=== PATIENT | female | born 1995 | race Caucasian/White ===

== ENCOUNTER 2016-12-17 09:59 | Emergency (ER) | payer OTHER ==
--- NOTE | 2016-12-17 11:32 | REP ---
Clinical: Cough . Comparison: 09/26/2016 . Technique: PA and lateral. Findings: The mediastinum and cardiac silhouette are normal. The lung huang are clear and without acute consolidation, effusion, or pneumothorax. The skeletal structures are intact and normal. Impression: 1. No acute cardiopulmonary process. Signed by Fritz Tyler MD 12/17/2016 11:24 A
--- NOTE | 2016-12-17 12:05 | EDDOCDS ---
Nurse's Notes [facility] Name: Milagros Jamil Age: 21 yrs Sex: Female : 1995 Arrival Date: 12/17/2016 Time: 09:59 Bed TR8 Private MD: Eda Velazquez Diagnosis: Acute nasopharyngitis [common cold] Presentation: 12/17 10:04 Presenting complaint: Patient states: severe cough for 4-5 days. runny nose itchy srm watery eyes. Presenting complaint: Patient states: chest shoulserds and back hurt from coughing. Adult Sepsis Screening: The patient does not have new or worsening altered mentation. Patient's respiratory rate is less than 22. Systolic blood pressure is greater than 100. Patient has a qSOFA score of 0- Negative Sepsis Screen. Suicide/Homicide risk assessment- the patient denies having any suicidal and/or homicidal ideations and does not present with any other emotional, behavioral or mental health complaints. Status: Patient is not a human services case manager or dependent. Transition of care: patient was not received from another setting of care. 10:04 Acuity: SARAH Level 4 srm 10:04 Method Of Arrival: Walkin/Carried/Asstd srm Triage Assessment: 10:06 General: Appears in no apparent distress, Behavior is appropriate for age, cooperative. srm Pain: Pain currently is 9 out of 10 on a pain scale. HIV screening NA for this visit Offered previously. 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 gemfibrozil 600 mg Oral tab 1 tab 2 times per day 2. Lantus 100 unit/mL Sub-Q soln 25 unit twice a day 3. levothyroxine 50 mcg Oral tab 1 tab once daily 4. metformin 500 mg Oral Tb24 1 tab 2 times per day 5. Vitamin D-2 1.25 mg twice weekly - PMHx: Bipolar disorder; Diabetes - IDDM: controlled; Hypercholesterolemia; Hypothyroidism; - PSHx: Tonsillectomy; Cholecystectomy; pilonidal cyst removal; - Social history: Smoking status: Patient states former smoker of tobacco. No barriers to communication noted, The patient speaks fluent Kyrgyz, Speaks appropriately for age. - Family history: Not pertinent. - : The pt / caregiver states he / she is not on anticoagulants. Home medication list is obtained from the patient. - Exposure Risk Screening:: None identified. Screenin:01 Screening information is obtained from the patient. Fall risk: No risks identified. [facility] Assistance ADL's: requires no assistance with activities of daily living. Abuse/DV Screen: The patient / caregiver reports he/she is: not in a situation that causes fear, pain or injury. Nutritional screening: No deficits noted. Advance Directives: There is no active DNR order. home support is adequate. Assessment: 12:01 General: Appears in no apparent distress, comfortable, Behavior is cooperative, first [facility] contact with patient to review discharge instructions, patient states "No, I'm not in very much pain right now" and rates it 9/10. encouraged and answered questions, patient denies further needs and declines offer of additional assistance. Respiratory: Airway is patent Respiratory effort is even, unlabored, Respiratory pattern is regular, symmetrical. Derm: Skin is pink, warm & dry. Vital Signs: 10:01 BP 114 / 81; Pulse 122; Resp 18; Temp 96.3; Pulse Ox 91% ; Weight 109.77 kg; Height 5 m ft. 5 in. (165.10 cm); Pain 9/10; 12:01 BP 142 / 94; Pulse 100; Resp 16; Temp 98.2; Pulse Ox 98% ; Pain 9/10; [facility] 10:01 Body Mass Index 40.27 (109.77 kg, 165.10 cm) [facility] Vitals: 10:01 Log In Time: December 17, 2016 at 10:01. [facility] ED Course: 10:00 Patient visited by Tanna Rodrigues, Combination Machine Tender. [facility] 10:00 Eda Velazquez is Private Physician. jl 10:00 Patient moved to Waiting jlm 10:01 Patient moved to Pre RCE jlm 10:05 Triage Initiated srm 10:24 Thaddeus Johns PA is PHCP. btw 10:24 Shelby Velasco MD is Attending Physician. btw 10:24 Patient visited by Thaddeus Jhons PA. btw 10:24 Patient moved to Triage 2 srm 10:35 Patient moved to TR3 sew 10:44 [facility] Payment Agreement was scanned into [employer] and attached to record. lg 10:56 Patient visited by Cynthia Song. sew 11:26 Eda Velazquez is Referral Physician. btw 11:30 Patient moved to PR1 / 25 [facility] 11:58 Patient moved to TR8 [facility] 12:01 The patient / caregiver is instructed regarding the plan of care and ED course. [facility] 12:01 No IV's were initiated during this patient's visit. No procedures done that require [facility] assistance. Point of Care Testing: Urine : 10:56 hCG Reading: Negative; Control Reading: Positive; sew Ranges: Order Results: There are currently no results for this order. Outcome: 11:26 Discharge ordered by Provider. btw 12:01 Discharge Assessment: Patient awake, alert and oriented x 3. No cognitive and/or [facility] functional deficits noted. Patient verbalized understanding of disposition instructions. patient administered narcotics - no. The following High Risk Discharge criteria are identified: None. Discharged to home ambulatory, with significant other. Condition: good Condition: stable. Discharge instructions given to patient, Instructed on discharge instructions, follow up and referral plans. Demonstrated understanding of instructions, Pt was receptive of discharge instructions/ teaching. No special radiology studies were completed. Property :Personal belongings accompany Pt. 12:04 Patient left the ED. [facility] Signatures: Sanju Cassidy, RN RN [facility] Halima Vaz RN RN Jacob Allen, Thaddeus Velasquez lg, PA PA [facility] Snehal Calix,RN RN [facility] Cynthia Song Jessie, Combination Machine Tender Unit [facility] MTDD
--- NOTE | 2016-12-17 12:05 | EDDOCDS ---
Physician Documentation [facility] Name: Milagros Jamil Age: 21 yrs Sex: Female : 1995 Arrival Date: 12/17/2016 Time: 09:59 Bed TR8 Private MD: Eda Velazquez Disposition: 12/17/16 11:26 Discharged to Home/Self Care. Impression: Acute nasopharyngitis [common cold]. - Condition is Stable. - Discharge Instructions: Cool Mist Vaporizers, Upper Respiratory Infection, Adult, Hhox-bo-Dtih, Viral Infections, Qold-Er-Ltnw. - Medication Reconciliation, Local Pharmacy Hours form. - Follow up: Eda Velazquez; When: Call to arrange an appointment; Reason: Further diagnostic work-up, Recheck today's complaints, Continuance of care. - Problem is new. - Symptoms are unchanged. Historical: - Allergies: Sudafed; - Home Meds: 1. gemfibrozil 600 mg Oral tab 1 tab 2 times per day 2. Lantus 100 unit/mL Sub-Q soln 25 unit twice a day 3. levothyroxine 50 mcg Oral tab 1 tab once daily 4. metformin 500 mg Oral Tb24 1 tab 2 times per day 5. Vitamin D-2 1.25 mg twice weekly - PMHx: Bipolar disorder; Diabetes - IDDM: controlled; Hypercholesterolemia; Hypothyroidism; - PSHx: Tonsillectomy; Cholecystectomy; pilonidal cyst removal; - Social history: Smoking status: Patient states former smoker of tobacco. No barriers to communication noted, The patient speaks fluent Nigerian, Speaks appropriately for age. - Family history: Not pertinent. - : The pt / caregiver states he / she is not on anticoagulants. Home medication list is obtained from the patient. - Exposure Risk Screening:: None identified. 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 5 in. (165.10 cm); Pain 9/10; 12:01 BP 142 / 94; Pulse 100; Resp 16; Temp 98.2; Pulse Ox 98% ; Pain 9/10; cjh 10:01 Body Mass Index 40.27 (109.77 kg, 165.10 cm) [facility] MDM: 10:36 Financial registration complete. 10:37 Chest, 2 View (pa\E\lat) Ordered. EDMS 10:44 [facility] Payment Agreement was scanned into [employer] and attached to record. Point of Care Testing: Urine : 10:56 hCG Reading: Negative; Control Reading: Positive; sew Ranges: Signatures: Dispatcher MedHost EDMS Halima Vaz, RN RN [facility] Jacob Souza, Reg Reg Thaddeus Johns PA PA lauraw Snehal Calix RN RN [facility] The chart was reviewed and I authenticate all verbal orders and agree with the evaluation and treatment provided.Attachments: 10:44 [facility] Payment Agreement lg MTDD
--- NOTE | 2016-12-19 13:05 | EDDOCDS ---
Nurse's Notes [facility] Name: Milagros Jamil Age: 21 yrs Sex: Female : 1995 Arrival Date: 12/17/2016 Time: 09:59 Bed TR8 Private MD: Eda Velazquez Diagnosis: Acute nasopharyngitis [common cold] Presentation: 12/17 10:04 Presenting complaint: Patient states: severe cough for 4-5 days. runny nose itchy srm watery eyes. Presenting complaint: Patient states: chest shoulserds and back hurt from coughing. Adult Sepsis Screening: The patient does not have new or worsening altered mentation. Patient's respiratory rate is less than 22. Systolic blood pressure is greater than 100. Patient has a qSOFA score of 0- Negative Sepsis Screen. Suicide/Homicide risk assessment- the patient denies having any suicidal and/or homicidal ideations and does not present with any other emotional, behavioral or mental health complaints. Status: Patient is not a construction services technician or dependent. Transition of care: patient was not received from another setting of care. 10:04 Acuity: SARAH Level 4 srm 10:04 Method Of Arrival: Walkin/Carried/Asstd srm Triage Assessment: 10:06 General: Appears in no apparent distress, Behavior is appropriate for age, cooperative. srm Pain: Pain currently is 9 out of 10 on a pain scale. HIV screening NA for this visit Offered previously. MANAGER WOMEN: 10:06 LMP 11/22/2016 srm Historical: - Allergies: Sudafed; - Home Meds: 1. gemfibrozil 600 mg Oral tab 1 tab 2 times per day 2. Lantus 100 unit/mL Sub-Q soln 25 unit twice a day 3. levothyroxine 50 mcg Oral tab 1 tab once daily 4. metformin 500 mg Oral Tb24 1 tab 2 times per day 5. Vitamin D-2 1.25 mg twice weekly - PMHx: Bipolar disorder; Diabetes - IDDM: controlled; Hypercholesterolemia; Hypothyroidism; - PSHx: Tonsillectomy; Cholecystectomy; pilonidal cyst removal; - Social history: Smoking status: Patient states former smoker of tobacco. No barriers to communication noted, The patient speaks fluent Stateless, Speaks appropriately for age. - Family history: Not pertinent. - : The pt / caregiver states he / she is not on anticoagulants. Home medication list is obtained from the patient. - Exposure Risk Screening:: None identified. Screenin:01 Screening information is obtained from the patient. Fall risk: No risks identified. [facility] Assistance ADL's: requires no assistance with activities of daily living. Abuse/DV Screen: The patient / caregiver reports he/she is: not in a situation that causes fear, pain or injury. Nutritional screening: No deficits noted. Advance Directives: There is no active DNR order. home support is adequate. Assessment: 12:01 General: Appears in no apparent distress, comfortable, Behavior is cooperative, first [facility] contact with patient to review discharge instructions, patient states "No, I'm not in very much pain right now" and rates it 9/10. encouraged and answered questions, patient denies further needs and declines offer of additional assistance. Respiratory: Airway is patent Respiratory effort is even, unlabored, Respiratory pattern is regular, symmetrical. Derm: Skin is pink, warm & dry. Vital Signs: 10:01 BP 114 / 81; Pulse 122; Resp 18; Temp 96.3; Pulse Ox 91% ; Weight 109.77 kg; Height 5 m ft. 5 in. (165.10 cm); Pain 9/10; 12:01 BP 142 / 94; Pulse 100; Resp 16; Temp 98.2; Pulse Ox 98% ; Pain 9/10; [facility] 10:01 Body Mass Index 40.27 (109.77 kg, 165.10 cm) [facility] Vitals: 10:01 Log In Time: December 17, 2016 at 10:01. [facility] ED Course: 10:00 Patient visited by Tanna Rodrigues, Traditional Maori Health Practitioner. [facility] 10:00 Eda Velazquez is Private Physician. jl 10:00 Patient moved to Waiting jlm 10:01 Patient moved to Pre RCE jlm 10:05 Triage Initiated srm 10:24 Thaddeus Johns PA is PHCP. btw 10:24 Shelby Velasco MD is Attending Physician. btw 10:24 Patient visited by Thaddeus Johns PA. btw 10:24 Patient moved to Triage 2 srm 10:35 Patient moved to TR3 sew 10:44 [facility] Payment Agreement was scanned into T[employer]ie and attached to record. lg 10:56 Patient visited by Cytnhia Song. sew 11:26 Eda Velazquez is Referral Physician. btw 11:30 Patient moved to PR1 / 25 [facility] 11:58 Patient moved to TR8 [facility] 12:01 The patient / caregiver is instructed regarding the plan of care and ED course. [facility] 12:01 No IV's were initiated during this patient's visit. No procedures done that require [facility] assistance. 12:05 Chest, 2 View (pa\\E\\lat) Returned. [facility] 22:12 T-Sheet-- Draft Copy was scanned into Tumbie and attached to record. klr Point of Care Testing: Urine : 10:56 hCG Reading: Negative; Control Reading: Positive; sew Ranges: Order Results: Radiology Order: Chest, 2 View (pa\\E\\lat) Test: Chest, 2 View (pa\\E\\lat) REASON FOR EXAMINATION: Cough; Clinical: Cough .; ; Comparison: 09/26/2016 .; ; Technique: PA and lateral.; ; Findings:; The mediastinum and cardiac silhouette are normal. The lung huang are clear and; without acute consolidation, effusion, or pneumothorax. The skeletal structures; are intact and normal.; ; Impression:; 1. No acute cardiopulmonary process.; ; ; Signed by; Fritz Tyler MD 12/17/2016 11:24 A; Outcome: 11:26 Discharge ordered by Provider. btw 12:01 Discharge Assessment: Patient awake, alert and oriented x 3. No cognitive and/or [facility] functional deficits noted. Patient verbalized understanding of disposition instructions. patient administered narcotics - no. The following High Risk Discharge criteria are identified: None. Discharged to home ambulatory, with significant other. Condition: good Condition: stable. Discharge instructions given to patient, Instructed on discharge instructions, follow up and referral plans. Demonstrated understanding of instructions, Pt was receptive of discharge instructions/ teaching. No special radiology studies were completed. Property :Personal belongings accompany Pt. 12:04 Patient left the ED. [facility] Signatures: Dispatcher [employer] EDDC Sanju Cassidy, Halima Schilling RN, RN RN srm Ganter, LoriLee, Reg Reg lg Thaddeus Johns, PA PA btw Snehal Calix RN RN [facility] Cynthia Song Jessie, Traditional Maori Health Practitioner Unit Tania Renteria Chart Complete MTDD
--- NOTE | 2016-12-19 13:05 | EDDOCDS ---
Physician Documentation [facility] Name: Milagros Jamil Age: 21 yrs Sex: Female : 1995 Arrival Date: 12/17/2016 Time: 09:59 Bed TR8 Private MD: Eda Velazquez Disposition: 12/17/16 11:26 Discharged to Home/Self Care. Impression: Acute nasopharyngitis [common cold]. - Condition is Stable. - Discharge Instructions: Cool Mist Vaporizers, Upper Respiratory Infection, Adult, Owzf-ok-Uoee, Viral Infections, Vppx-Ij-Yvmw. - Medication Reconciliation, Local Pharmacy Hours form. - Follow up: Eda Velazquez; When: Call to arrange an appointment; Reason: Further diagnostic work-up, Recheck today's complaints, Continuance of care. - Problem is new. - Symptoms are unchanged. Historical: - Allergies: Sudafed; - Home Meds: 1. gemfibrozil 600 mg Oral tab 1 tab 2 times per day 2. Lantus 100 unit/mL Sub-Q soln 25 unit twice a day 3. levothyroxine 50 mcg Oral tab 1 tab once daily 4. metformin 500 mg Oral Tb24 1 tab 2 times per day 5. Vitamin D-2 1.25 mg twice weekly - PMHx: Bipolar disorder; Diabetes - IDDM: controlled; Hypercholesterolemia; Hypothyroidism; - PSHx: Tonsillectomy; Cholecystectomy; pilonidal cyst removal; - Social history: Smoking status: Patient states former smoker of tobacco. No barriers to communication noted, The patient speaks fluent [place] Islander, Speaks appropriately for age. - Family history: Not pertinent. - : The pt / caregiver states he / she is not on anticoagulants. Home medication list is obtained from the patient. - Exposure Risk Screening:: None identified. 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 5 in. (165.10 cm); Pain 9/10; 12:01 BP 142 / 94; Pulse 100; Resp 16; Temp 98.2; Pulse Ox 98% ; Pain 9/10; cjh 10:01 Body Mass Index 40.27 (109.77 kg, 165.10 cm) [facility] MDM: 10:36 Financial registration complete. lg 10:37 Chest, 2 View (pa\E\lat) Ordered. EDMS 10:44 [facility] Payment Agreement was scanned into [employer] and attached to record. lg 22:12 T-Sheet-- Draft Copy was scanned into [employer] and attached to record. klr Point of Care Testing: Urine : 10:56 hCG Reading: Negative; Control Reading: Positive; sew Ranges: Signatures: Dispatcher MedHost EDMS Halima Vaz, RN RN Jacob Allen, Reg Reg lg Thaddeus Johns PA PA btw Hafner, Jane, RN RN mary lou Tania Miguel The chart was reviewed and I authenticate all verbal orders and agree with the evaluation and treatment provided.Attachments: 10:44 [facility] Payment Agreement lg 22:12 T-Sheet-- Draft Copy klr Chart Complete MTDD
--- NOTE | 2016-12-19 13:05 | EDDOCDS ---
Physician Documentation [facility] Name: Milagros Jamil Age: 21 yrs Sex: Female : 1995 Arrival Date: 12/17/2016 Time: 09:59 Bed TR8 Private MD: Eda Velazquez Disposition: 12/17/16 11:26 Discharged to Home/Self Care. Impression: Acute nasopharyngitis [common cold]. - Condition is Stable. - Discharge Instructions: Cool Mist Vaporizers, Upper Respiratory Infection, Adult, Oeyu-ug-Snko, Viral Infections, Qltn-Jt-Ygep. - Medication Reconciliation, Local Pharmacy Hours form. - Follow up: dEa Velazquez; When: Call to arrange an appointment; Reason: Further diagnostic work-up, Recheck today's complaints, Continuance of care. - Problem is new. - Symptoms are unchanged. Historical: - Allergies: Sudafed; - Home Meds: 1. gemfibrozil 600 mg Oral tab 1 tab 2 times per day 2. Lantus 100 unit/mL Sub-Q soln 25 unit twice a day 3. levothyroxine 50 mcg Oral tab 1 tab once daily 4. metformin 500 mg Oral Tb24 1 tab 2 times per day 5. Vitamin D-2 1.25 mg twice weekly - PMHx: Bipolar disorder; Diabetes - IDDM: controlled; Hypercholesterolemia; Hypothyroidism; - PSHx: Tonsillectomy; Cholecystectomy; pilonidal cyst removal; - Social history: Smoking status: Patient states former smoker of tobacco. No barriers to communication noted, The patient speaks fluent Prydeinig, Speaks appropriately for age. - Family history: Not pertinent. - : The pt / caregiver states he / she is not on anticoagulants. Home medication list is obtained from the patient. - Exposure Risk Screening:: None identified. 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 5 in. (165.10 cm); Pain 9/10; 12:01 BP 142 / 94; Pulse 100; Resp 16; Temp 98.2; Pulse Ox 98% ; Pain 9/10; cjh 10:01 Body Mass Index 40.27 (109.77 kg, 165.10 cm) [facility] MDM: 10:36 Financial registration complete. lg 10:37 Chest, 2 View (pa\E\lat) Ordered. EDMS 10:44 [facility] Payment Agreement was scanned into Owl[employer] and attached to record. lg 22:12 T-Sheet-- Draft Copy was scanned into Owlr and attached to record. klr Point of Care Testing: Urine : 10:56 hCG Reading: Negative; Control Reading: Positive; sew Ranges: Signatures: Dispatcher MedHost EDMS Halima Vaz, RN RN Jacob Allen, Reg Reg lg Thaddeus Johns PA PA btw Hafner, Jane, RN RN mary lou Tania Miguel The chart was reviewed and I authenticate all verbal orders and agree with the evaluation and treatment provided.Attachments: 10:44 [facility] Payment Agreement lg 22:12 T-Sheet-- Draft Copy klr Chart Complete MTDD
== END 2016-12-17 12:04 | disposition home or self-care (01) ==
LOC: M ED 09:59
DX: J00 Acute nasopharyngitis [common cold] (principal); B34.9 Viral infection, unspecified; F31.9 Bipolar disorder, unspecified; E11.9 Type 2 diabetes mellitus without complications; E78.00 Pure hypercholesterolemia, unspecified; E03.9 Hypothyroidism, unspecified; Z87.891 Personal history of nicotine dependence; Z79.84 Long term (current) use of oral hypoglycemic drugs; Z79.899 Other long term (current) drug therapy; Z79.4 Long term (current) use of insulin; Z88.8 Allergy status to other drugs, medicaments and biological substances

== ENCOUNTER 2017-02-23 18:00 | Emergency (ER) | payer OTHER ==
[~2017-02-23] VITALS: Ht 165.1 cm; Wt 111.1 kg
[2017-02-23] MEDS ORDERED: METF500T PO (18:14)
[2017-02-23] MEDS ORDERED: INSULANT SC (18:14)
[2017-02-23] MEDS ORDERED: GEMF600T PO (18:14)
[2017-02-23] MEDS ORDERED: VITA50003 PO (18:14)
--- NOTE | 2017-02-23 19:22 | REP ---
THORACIC SPINE, THREE VIEWS: HISTORY: Fall. There is no acute fracture or subluxation. There are old compression fractures of the T11 and T12 vertebral bodies with minimal height loss. The intervertebral discs are normal in height. Osteophytes are present on T10 through T12. IMPRESSION: There is no acute fracture or subluxation. Signed by Eddie Trevizo MD 02/23/2017 07:26 P
--- NOTE | 2017-02-23 19:24 | REP ---
LUMBAR SPINE, FIVE VIEWS: HISTORY: Fall. There is no acute fracture or subluxation. There are old compression fractures of the T11 and T12 vertebral bodies with minimal height loss. The intervertebral discs are normal in height. Osteophytes are present on T10 through T12. The facet joints are normal in appearance. IMPRESSION: There is no acute fracture or dislocation. Signed by Eddie Trevizo MD 02/23/2017 07:25 P
[2017-02-23] MEDS ORDERED: IBUP600T26 PO (19:29)
[2017-02-23] MEDS ORDERED: CYCL10TA PO (19:29)
[2017-02-23 19:39] VITALS: BP 126/79
== END 2017-02-23 19:41 | disposition home or self-care (01) ==
LOC: M ED 19:04
DX: S29.012A Strain of muscle and tendon of back wall of thorax, initial encounter (principal); S39.012A Strain of muscle, fascia and tendon of lower back, initial encounter; S33.5XXA Sprain of ligaments of lumbar spine, initial encounter; S23.3XXA Sprain of ligaments of thoracic spine, initial encounter; W18.2XXA Fall in (into) shower or empty bathtub, initial encounter; Y92.002 Bathroom of unspecified non-institutional (private) residence as the place of occurrence of the external cause; Y93.E1 Activity, personal bathing and showering; Y99.8 Other external cause status; Z88.5 Allergy status to narcotic agent; Z79.84 Long term (current) use of oral hypoglycemic drugs; Z79.899 Other long term (current) drug therapy

== ENCOUNTER 2017-02-27 13:08 | Emergency (ER) | payer OTHER, SELFPAY ==
[~2017-02-27] VITALS: Ht 165.1 cm; Wt 111.1 kg
[~2017-02-27 13:08] MED LIST: CYCL10TA PO; GEMF600T PO; IBUP600T26 PO; INSULANT SC; METF500T PO; VITA50003 PO
[2017-02-27 13:12] VITALS: BP 142/77
== END 2017-02-27 13:49 | disposition home or self-care (01) ==
LOC: M ED 13:38
DX: M62.838 Other muscle spasm (principal); I10 Essential (primary) hypertension; E11.9 Type 2 diabetes mellitus without complications; F41.9 Anxiety disorder, unspecified; F33.9 Major depressive disorder, recurrent, unspecified; F60.3 Borderline personality disorder; Z79.899 Other long term (current) drug therapy; Z79.84 Long term (current) use of oral hypoglycemic drugs; Z79.4 Long term (current) use of insulin; Z88.5 Allergy status to narcotic agent; Z88.8 Allergy status to other drugs, medicaments and biological substances

== ENCOUNTER 2017-03-11 12:21 | Emergency (ER) | payer OTHER ==
[~2017-03-11] VITALS: Ht 165.1 cm; Wt 111.1 kg
[2017-03-11 12:25] VITALS: BP 132/82
[2017-03-11] MEDS ORDERED: BACT800T5 PO (13:13)
== END 2017-03-11 13:29 | disposition home or self-care (01) ==
LOC: M ED 12:41
DX: L03.113 Cellulitis of right upper limb (principal); I10 Essential (primary) hypertension; F41.9 Anxiety disorder, unspecified; F33.9 Major depressive disorder, recurrent, unspecified; F60.3 Borderline personality disorder; Z79.899 Other long term (current) drug therapy; Z79.84 Long term (current) use of oral hypoglycemic drugs; Z79.4 Long term (current) use of insulin; Z88.5 Allergy status to narcotic agent; Z88.8 Allergy status to other drugs, medicaments and biological substances

== ENCOUNTER → 2017-03-12 | Emergency (ER) | payer OTHER ==
[~2017-03-12] VITALS: Ht 165.1 cm; Wt 111.1 kg
[~2017-03-12] MED LIST changes: +BACT800T5 PO
[2017-03-12 16:47] VITALS: BP 116/80
== END | disposition left against medical advice (07) ==
LOC: M ED 17:53
DX: Z04.8 Encounter for examination and observation for other specified reasons (principal); Z53.29 Procedure and treatment not carried out because of patient's decision for other reasons

== ENCOUNTER 2017-07-02 13:36 | Emergency (ER) | payer OTHER ==
[~2017-07-02] VITALS: Ht 157.5 cm; Wt 110.2 kg
[~2017-07-02 13:36] MED LIST changes: +IBUP-1022 PO; -IBUP600T26 PO; -METF500T PO; +METF500T13 PO; +VITA1CAP40 PO; -VITA50003 PO
[2017-07-02] MEDS ORDERED: PYRI1TAB5 PO (17:23)
[2017-07-02] MEDS ORDERED: MACR100C43 PO (17:23)
[2017-07-02] MEDS ORDERED: NITROFURANTOIN (MACROBID) 100 MG CAP PO ONE (17:30)
[2017-07-02] MEDS ORDERED: PHENAZOPYRIDINE 100 MG TAB PO ONE (17:30)
[2017-07-02 18:02] LABS: CONTROL LINE UCG INT CTR LINE PRESENT
[2017-07-02 18:14] VITALS: BP 131/76
[2017-09-01] MEDS ORDERED: CIPR-249 PO (14:24)
[2017-09-01] MEDS ORDERED: PROT1TAB2 PO (14:24)
[2017-09-01] MEDS ORDERED: ZOFR4TAB3 PO (14:24)
[2017-09-01] MEDS ORDERED: BENT20TA PO (14:27)
== END 2017-07-02 18:20 | disposition home or self-care (01) ==
LOC: M ED 13:36
DX: N39.0 Urinary tract infection, site not specified (principal); E10.65 Type 1 diabetes mellitus with hyperglycemia; Z87.891 Personal history of nicotine dependence

== ENCOUNTER → 2017-10-01 | Outpatient (CLI) | payer OTHER ==
[~2017-10-01] MED LIST changes: +BENT20TA PO; +CIPR-249 PO; +MACR100C43 PO; +PROT1TAB2 PO; +PYRI1TAB5 PO; +ZOFR4TAB3 PO
[2017-10-01 10:43] LABS: MEAN CORPUSCULAR HEMOGLOBIN 28.6 pg (27.0-33.0); MEAN CORPUSCULAR HGB CONC 34.2 g/dl (32.0-36.5); MEAN CORPUSCULAR VOLUME 83.7 fl (80.0-96.0); PLATELET COUNT, AUTOMATED 250 10^3/uL (150-450); RED CELL DISTRIBUTION WIDTH 11.8 % (11.5-14.5); WHITE BLOOD COUNT 11.4 10^3/uL (4.0-10.0)
[2017-10-01 10:46] LABS: ADD MANUAL DIFFER YES; DIFF SLIDE NUMBER 192; POSITIVE DIFF POS FLAG
[2017-10-01 10:59] LABS: BANDS 1 % (< 11); EOSINOPHILS 4 % (0-5)
[2017-10-01 12:51] LABS: ALBUMIN 3.7 GM/DL (3.2-5.2); ALBUMIN/GLOBULIN RATIO 0.97 (1.00-1.93); ALKALINE PHOSPHATASE 70 U/L (45-117); ALT/SGPT 43 U/L (12-78); ANION GAP 12 MEQ/L (8-16); AST/SGOT 27 U/L (7-37); BILIRUBIN,TOTAL 0.4 MG/DL (0.2-1.0); BLOOD UREA NITROGEN 11 MG/DL (7-18); CALCIUM LEVEL 9.2 MG/DL (8.5-10.1); CARBON DIOXIDE LEVEL 26 MEQ/L (21-32); CHLORIDE LEVEL 101 MEQ/L (98-107); CHOLESTEROL LEVEL 183 MG/DL (<200); CREATININE FOR GFR 0.69 MG/DL (0.55-1.02); FREE T4 1.04 NG/DL (0.76-1.46); GLOMERULAR FILTRATION RATE > 60.0 (>60); GLUCOSE, FASTING 198 MG/DL (70-105); POTASSIUM SERUM 3.8 MEQ/L (3.5-5.1); SODIUM LEVEL 139 MEQ/L (136-145); TOTAL PROTEIN 7.5 GM/DL (6.4-8.2); TRIGLYCERIDES LEVEL 485 MG/DL (<150)
== END ==
LOC: M LAB 10:01
PROVIDERS: ATTEND Nurse Practitioner Family
DX: Z00.00 Encounter for general adult medical examination without abnormal findings (principal)

== ENCOUNTER → 2017-11-14 | Outpatient (REF) | payer OTHER ==
[2017-11-14 16:01] LABS: ANION GAP 8 MEQ/L (8-16); BLOOD UREA NITROGEN 14 MG/DL (7-18); CALCIUM LEVEL 8.7 MG/DL (8.5-10.1); CARBON DIOXIDE LEVEL 28 MEQ/L (21-32); CHLORIDE LEVEL 102 MEQ/L (98-107); FREE T4 0.92 NG/DL (0.76-1.46); GLOMERULAR FILTRATION RATE > 60.0 (>60); GLUCOSE, FASTING 290 MG/DL (70-105); POTASSIUM SERUM 3.5 MEQ/L (3.5-5.1); SODIUM LEVEL 138 MEQ/L (136-145)
== END ==
LOC: M SFHCPLAZ 13:31
DX: E78.5 Hyperlipidemia, unspecified (principal); R94.6 Abnormal results of thyroid function studies; E11.9 Type 2 diabetes mellitus without complications

== ENCOUNTER → 2017-11-20 | Outpatient (CLI) | payer OTHER ==
[2017-11-20 12:54] LABS: BASO # 0.1 10^3/uL (0.0-0.2); BASO % 0.7 % (0.0-1.0); EOS # 0.2 10^3/uL (0.0-0.50); EOS % 2.2 % (0.0-3.0); HEMATOCRIT 39.7 % (36.0-47.0); HEMOGLOBIN 13.9 g/dl (12.0-16.0); IMMATURE GRANULOCYTE # 0.1 10^3/uL (0-0); IMMATURE GRANULOCYTE % 0.7 % (0-0); LYMPH # 2.7 10^3/uL (1.5-6.5); LYMPH % 32.3 % (24.0-44.0); MEAN CORPUSCULAR HEMOGLOBIN 28.9 pg (27.0-33.0); MEAN CORPUSCULAR VOLUME 82.5 fl (80.0-96.0); MONO # 0.6 10^3/uL (0.0-0.8); NEUTROPHILS # 4.7 10^3/uL (1.8-7.7); NEUTROPHILS % 57.1 % (36.0-66.0); PLATELET COUNT, AUTOMATED 278 10^3/uL (150-450); RED BLOOD COUNT 4.81 10^6/uL (4.00-5.40); RED CELL DISTRIBUTION WIDTH 11.9 % (11.5-14.5); WHITE BLOOD COUNT 8.3 10^3/uL (4.0-10.0)
[2017-11-20 13:42] LABS: CONTROL LINE MONO EB INT CTR LINE PRESENT; MONO REFLEX EBV VCA IgM NEGATIVE (NEGATIVE)
[2017-11-22 00:06] LABS: EBV VIRAL CAPSID AG IgM <36.0 U/mL (0.0-35.9)
== END ==
LOC: M LAB 12:11
DX: D72.829 Elevated white blood cell count, unspecified (principal)
CPT/HCPCS: 86665

== ENCOUNTER 2022-01-12 11:54 | Emergency (ER) | payer MEDICAID, OTHER ==
[~2022-01-12] VITALS: Ht 165.1 cm; Wt 99.6 kg
[2022-01-12 11:54] VITALS: BP 131/83
[~2022-01-12 11:54] MED LIST changes: +CYCL-707 PO; -CYCL10TA PO; -GEMF600T PO; +GEMF600T5 PO; -VITA1CAP40 PO; +VITA50005 PO; +ZOFR4TAB14 PO; -ZOFR4TAB3 PO
== END 2022-01-12 15:50 | disposition left against medical advice (07) ==
LOC: M ED 11:54
DX: Z53.29 Procedure and treatment not carried out because of patient's decision for other reasons (principal)

== ENCOUNTER → 2022-08-11 | Outpatient (CLI) | payer MEDICAID, OTHER ==
[2022-08-11 17:13] LABS: BASO # 0.1 10^3/uL (0.0-0.2); BASO % 0.6 % (0.0-1.0); EOS # 0.2 10^3/uL (0.0-0.5); EOS % 2.1 % (0.0-3.0); HEMATOCRIT 41.6 % (36.0-47.0); HEMOGLOBIN 14.2 g/dl (12.0-15.5); LYMPH # 3.3 10^3/uL (1.5-5.0); LYMPH % 33.8 % (24.0-44.0); MEAN CORPUSCULAR HGB CONC 34.1 g/dl (32.0-36.5); MEAN CORPUSCULAR VOLUME 84.9 fl (80.0-96.0); MONO # 0.6 10^3/uL (0.0-0.8); MONO % 5.7 % (2.0-8.0); NEUTROPHILS # 5.6 10^3/uL (1.5-8.5); PLATELET COUNT, AUTOMATED 253 10^3/uL (150-450); WHITE BLOOD COUNT 9.9 10^3/uL (4.0-10.0)
[2022-08-11 18:15] LABS: ALBUMIN 3.7 GM/DL (3.2-5.2); ALT/SGPT 39 U/L (12-78); BILIRUBIN,TOTAL 0.5 MG/DL (0.2-1.0); BLOOD UREA NITROGEN 14 MG/DL (7-18); CALCIUM LEVEL 9.1 MG/DL (8.5-10.1); CARBON DIOXIDE LEVEL 23 MEQ/L (21-32); CHLORIDE LEVEL 103 MEQ/L (98-107); CHOLESTEROL LEVEL 217 MG/DL (<200); CREATININE FOR GFR 0.57 MG/DL (0.55-1.30); GLOMERULAR FILTRATION RATE > 60.0 (>60); GLUCOSE, FASTING 240 MG/DL (70-100); HDL CHOLESTEROL 35 MG/DL (>40); NON-HDL-C 182 MG/DL; NT-PRO BNP 8 PG/ML (<125); POTASSIUM SERUM 3.7 MEQ/L (3.5-5.1); SODIUM LEVEL 134 MEQ/L (136-145); TOTAL PROTEIN 7.7 GM/DL (6.4-8.2); TRIGLYCERIDES LEVEL 693 MG/DL (<150)
[2022-08-11 18:26] LABS: MAU/CREAT RATIO 398.3 MCG/MG (0.0-30.0)
[2022-08-11 18:49] LABS: HEMOGLOBIN A1c 10.3 %
== END ==
LOC: M PLALAB 16:00
PROVIDERS: ATTEND Family Medicine
DX: E78.5 Hyperlipidemia, unspecified (principal); E11.9 Type 2 diabetes mellitus without complications; R06.00 Dyspnea, unspecified; R94.6 Abnormal results of thyroid function studies

== ENCOUNTER → 2022-08-17 | Outpatient (CLI) | payer OTHER | LOC: M PLAIMG 13:21 | PROVIDERS: ATTEND Family Medicine | DX: R06.00 Dyspnea, unspecified (principal) ==

== ENCOUNTER → 2022-08-23 | Outpatient (REF) | payer OTHER | LOC: M SFHCPLAZ 16:49 | PROVIDERS: ATTEND Family Medicine | DX: E11.65 Type 2 diabetes mellitus with hyperglycemia (principal); R06.00 Dyspnea, unspecified; Z53.8 Procedure and treatment not carried out for other reasons ==

== ENCOUNTER → 2022-09-06 | Outpatient (CLI) | payer OTHER | LOC: M CARPUL 10:18 | PROVIDERS: ATTEND Family Medicine | DX: R06.00 Dyspnea, unspecified (principal) ==

== ENCOUNTER → 2022-10-02 | Outpatient (CLI) | payer OTHER ==
[~2022-10-02] MED LIST changes: +METHACHOLINE KIT INH ONE
== END ==
LOC: M CARPUL 10:47
PROVIDERS: ATTEND Family Medicine
DX: R06.00 Dyspnea, unspecified (principal)
CPT/HCPCS: 94070; 95070; J7674

== ENCOUNTER → 2022-10-03 | Outpatient (REF) | payer OTHER ==
[~2022-10-03] MED LIST changes: -METHACHOLINE KIT INH ONE
== END ==
LOC: M SFHCPLAZ 14:51
PROVIDERS: ATTEND Family Medicine
DX: E11.65 Type 2 diabetes mellitus with hyperglycemia (principal)

== ENCOUNTER → 2022-10-06 | Outpatient (REF) | payer OTHER | LOC: M SFHCPLAZ 09:57 | PROVIDERS: ATTEND Family Medicine | DX: Z53.20 Procedure and treatment not carried out because of patient's decision for unspecified reasons (principal) ==

== ENCOUNTER → 2022-10-31 | Outpatient (CLI) | payer OTHER ==
[2022-10-31 15:52] LABS: HEMOGLOBIN A1c 8.9 % (4.0-6.0)
[2022-10-31 22:37] LABS: CREATININE, URINE 111.9 MG/DL; MAU/CREAT RATIO 74.1 MCG/MG (0.0-30.0)
== END ==
LOC: M PLALAB 14:19
PROVIDERS: ATTEND Family Medicine
DX: E11.65 Type 2 diabetes mellitus with hyperglycemia (principal); E11.21 Type 2 diabetes mellitus with diabetic nephropathy

== ENCOUNTER → 2022-11-06 | Outpatient (CLI) | payer OTHER ==
[2022-11-06 17:18] LABS: CHOLESTEROL RISK RATIO 3.68 (<5); HDL CHOLESTEROL 37.5 MG/DL (>40); HEMATOCRIT 42.3 % (36.0-47.0); HEMOGLOBIN 14.4 g/dl (12.0-15.5); LDL CHOLESTEROL 54.1 MG/DL (<100); MEAN CORPUSCULAR HEMOGLOBIN 28.9 pg (27.0-33.0); MEAN CORPUSCULAR VOLUME 84.8 fl (80.0-96.0); PLATELET COUNT, AUTOMATED 253 10^3/uL (150-450); RED BLOOD COUNT 4.99 10^6/uL (4.00-5.40); WHITE BLOOD COUNT 10.2 10^3/uL (4.0-10.0)
[2022-11-06 17:21] LABS: FERRITIN 28.1 NG/ML (7.3-270.7)
== END ==
LOC: M PLALAB 13:52
PROVIDERS: ATTEND Family Medicine
DX: E55.9 Vitamin D deficiency, unspecified (principal); N82.0 Vesicovaginal fistula; E11.65 Type 2 diabetes mellitus with hyperglycemia; E78.1 Pure hyperglyceridemia

== ENCOUNTER → 2023-01-01 | Outpatient (CLI) | payer OTHER ==
[2023-01-01 16:28] LABS: PROLACTIN 3.32 NG/ML
[2023-01-01 16:29] LABS: THYROID STIMULATING HORMONE 1.647 uIU/ML (0.55-4.78)
[2023-01-01 16:31] LABS: FREE T4 0.94 NG/DL (0.89-1.76)
== END ==
LOC: M PLALAB 14:02
PROVIDERS: ATTEND Nurse Practitioner Family
DX: N92.6 Irregular menstruation, unspecified (principal)

== ENCOUNTER → 2023-01-19 | Outpatient (CLI) | payer OTHER | LOC: M WHC 13:45 | PROVIDERS: ATTEND Nurse Practitioner Family | DX: R10.2 Pelvic and perineal pain (principal) ==

== ENCOUNTER → 2023-03-01 | Outpatient (CLI) | payer OTHER | LOC: M PLALAB 08:56 | PROVIDERS: ATTEND Family Medicine | DX: E11.65 Type 2 diabetes mellitus with hyperglycemia (principal) ==

== ENCOUNTER → 2023-04-19 | Outpatient (CLI) | payer OTHER ==
[2023-04-19 14:46] LABS: HEMOGLOBIN A1c 6.2 % (4.0-6.0)
== END ==
LOC: M PLALAB 11:44
PROVIDERS: ATTEND Family Medicine
DX: E11.65 Type 2 diabetes mellitus with hyperglycemia (principal)

== ENCOUNTER → 2023-05-22 | Outpatient (REF) | payer OTHER ==
[2023-05-22 21:50] LABS: HCG, SERUM QUALITATIVE POSITIVE (NEGATIVE); HCG, SERUM QUANTITATIVE 38114.3 MIU/ML (<4.2)
== END ==
LOC: M LAB REF 20:55
PROVIDERS: ATTEND Physician Assistant Medical
DX: Z34.90 Encounter for supervision of normal pregnancy, unspecified, unspecified trimester (principal)

== ENCOUNTER → 2023-05-29 | Outpatient (CLI) | payer OTHER | LOC: M WHC 12:43 | PROVIDERS: ATTEND Family Medicine | DX: Z34.90 Encounter for supervision of normal pregnancy, unspecified, unspecified trimester (principal) ==

== ENCOUNTER → 2023-06-25 | Outpatient (CLI) | payer OTHER ==
[2023-06-25 16:02] LABS: HEMATOCRIT 38.9 % (36.0-47.0); HEMOGLOBIN 13.2 g/dl (12.0-15.5); MEAN CORPUSCULAR HEMOGLOBIN 28.5 pg (27.0-33.0); MEAN CORPUSCULAR HGB CONC 33.9 g/dl (32.0-36.5); PLATELET COUNT, AUTOMATED 281 10^3/uL (150-450); RED BLOOD COUNT 4.63 10^6/uL (4.00-5.40); WHITE BLOOD COUNT 11.7 10^3/uL (4.0-10.0)
[2023-06-25 16:29] LABS: HEMOGLOBIN A1c 5.2 % (4.0-6.0)
[2023-06-25 17:12] LABS: HIV 1&2 SCREEN NEGATIVE (NEGATIVE)
[2023-06-25 17:19] LABS: HEPATITIS C VIRUS ABY INDEX 0.11 INDEX (<0.8)
[2023-06-25 17:26] LABS: GC DNA AMPLIFICATION NEGATIVE (NEGATIVE)
== END ==
LOC: M PLALAB 14:44
PROVIDERS: ATTEND Advanced Practice Midwife
DX: Z34.01 Encounter for supervision of normal first pregnancy, first trimester (principal)

== ENCOUNTER → 2023-07-05 | Outpatient (REF) | payer OTHER | LOC: M SFHCWAGY 13:30 | PROVIDERS: ATTEND Specialist | DX: N39.0 Urinary tract infection, site not specified (principal) ==

== ENCOUNTER 2023-08-20 02:12 | Emergency (ER) | payer OTHER ==
[~2023-08-20] VITALS: Ht 160 cm; Wt 104.6 kg
[2023-08-20] MEDS ORDERED: METF-838 (02:22)
[2023-08-20] MEDS ORDERED: MULTTAB20 PO (02:22)
[2023-08-20] MEDS ORDERED: INSU100I40 SQ (02:22)
[2023-08-20] MEDS ORDERED: ACETAMINOPHEN TAB 650MG DOSE (2X325MG) PO ONE (02:45)
[2023-08-20] MEDS ORDERED: ONDANSETRON 4MG ORAL DISINTEGRATING TAB PO ONE (02:45)
[2023-08-20 03:23] LABS: BASO # 0.1 10^3/uL (0.0-0.2); BASO % 0.4 % (0.0-1.0); EOS # 0.2 10^3/uL (0.0-0.5); EOS % 1.8 % (0.0-3.0); HEMATOCRIT 32.6 % (36.0-47.0); HEMOGLOBIN 11.2 g/dl (12.0-15.5); LYMPH # 3.2 10^3/uL (1.5-5.0); LYMPH % 27.4 % (24.0-44.0); MEAN CORPUSCULAR HEMOGLOBIN 29.3 pg (27.0-33.0); MEAN CORPUSCULAR HGB CONC 34.4 g/dl (32.0-36.5); MEAN CORPUSCULAR VOLUME 85.3 fl (80.0-96.0); MONO # 0.8 10^3/uL (0.0-0.8); MONO % 6.9 % (2.0-8.0); NEUTROPHILS # 7.4 10^3/uL (1.5-8.5); NEUTROPHILS % 62.7 % (36.0-66.0); PLATELET COUNT, AUTOMATED 249 10^3/uL (150-450); RED BLOOD COUNT 3.82 10^6/uL (4.00-5.40); WHITE BLOOD COUNT 11.8 10^3/uL (4.0-10.0)
[2023-08-20 05:11] VITALS: BP 101/59; TEMP 96.8; O2SAT 100
== END 2023-08-20 05:55 | disposition home or self-care (01) ==
LOC: M ED 02:12
DX: O26.892 Other specified pregnancy related conditions, second trimester (principal); R10.9 Unspecified abdominal pain; E11.9 Type 2 diabetes mellitus without complications; I10 Essential (primary) hypertension; F31.9 Bipolar disorder, unspecified; E78.5 Hyperlipidemia, unspecified; Z88.5 Allergy status to narcotic agent; Z88.8 Allergy status to other drugs, medicaments and biological substances; Z3A.19 19 weeks gestation of pregnancy; Z79.4 Long term (current) use of insulin; Z79.810 Long term (current) use of selective estrogen receptor modulators (SERMs); Z79.899 Other long term (current) drug therapy

== ENCOUNTER → 2023-09-24 | Outpatient (CLI) | payer OTHER ==
[~2023-09-24] MED LIST changes: +INSU100I40 SQ; +METF-838; +MULTTAB20 PO
== END ==
LOC: M WHC 09:02
PROVIDERS: ATTEND Obstetrics & Gynecology
DX: Z36.2 Encounter for other antenatal screening follow-up (principal); Z3A.24 24 weeks gestation of pregnancy

== ENCOUNTER → 2023-09-24 | Outpatient (CLI) | payer OTHER ==
[2023-09-24 12:40] LABS: HEMATOCRIT 35.4 % (36.0-47.0); HEMOGLOBIN 11.8 g/dl (12.0-15.5); MEAN CORPUSCULAR HEMOGLOBIN 29.2 pg (27.0-33.0); MEAN CORPUSCULAR HGB CONC 33.3 g/dl (32.0-36.5); MEAN CORPUSCULAR VOLUME 87.6 fl (80.0-96.0); PLATELET COUNT, AUTOMATED 286 10^3/uL (150-450); RED BLOOD COUNT 4.04 10^6/uL (4.00-5.40); WHITE BLOOD COUNT 12.3 10^3/uL (4.0-10.0)
[2023-09-24 13:04] LABS: HEMOGLOBIN A1c 5.2 % (4.0-6.0)
== END ==
LOC: M PLALAB 10:42
PROVIDERS: ATTEND Obstetrics & Gynecology
DX: O24.312 Unspecified pre-existing diabetes mellitus in pregnancy, second trimester (principal); Z36.89 Encounter for other specified antenatal screening; Z3A.00 Weeks of gestation of pregnancy not specified

== ENCOUNTER → 2023-10-09 | Outpatient (CLI) | payer OTHER ==
[2023-10-09 15:55] LABS: ALBUMIN 2.9 G/DL (3.2-5.2); ALKALINE PHOSPHATASE 64 U/L (46-116); ALT/SGPT 14 U/L (7.0-40); AST/SGOT 13 U/L (<34); BILIRUBIN,TOTAL 0.2 MG/DL (0.3-1.2); BLOOD UREA NITROGEN 10 MG/DL (9-23); CALCIUM LEVEL 8.9 MG/DL (8.5-10.1); CARBON DIOXIDE LEVEL 21 MMOL/L (20-31); CHLORIDE LEVEL 104 MMOL/L (98-107); CREATININE FOR GFR 0.48 MG/DL (0.55-1.30); GLOMERULAR FILTRATION RATE > 60.0 (>60); GLUCOSE, FASTING 113 MG/DL (60-100); POTASSIUM SERUM 4.1 MMOL/L (3.5-5.1); SODIUM LEVEL 135 MMOL/L (136-145); TOTAL PROTEIN 6.9 G/DL (5.7-8.2)
[2023-10-09 15:57] LABS: HEMATOCRIT 35.2 % (36.0-47.0); HEMOGLOBIN 11.6 g/dl (12.0-15.5); MEAN CORPUSCULAR HEMOGLOBIN 28.8 pg (27.0-33.0); MEAN CORPUSCULAR VOLUME 87.3 fl (80.0-96.0); PLATELET COUNT, AUTOMATED 286 10^3/uL (150-450); RED BLOOD COUNT 4.03 10^6/uL (4.00-5.40)
[2023-10-09 16:09] LABS: HEMOGLOBIN A1c 5.6 % (4.0-6.0)
[2023-10-09 16:14] LABS: TOTAL PROTEIN,RANDOM URINE 14.4 MG/DL (0.0-14.0)
[2023-10-09 16:19] LABS: CREATININE,RANDOM URINE 96.6 MG/DL
[2023-10-09 17:11] LABS: CHLAMYDIA DNA AMPLIFICATION NEGATIVE (NEGATIVE); GC DNA AMPLIFICATION NEGATIVE (NEGATIVE)
== END ==
LOC: M PLALAB 12:42
PROVIDERS: ATTEND Obstetrics & Gynecology
DX: Z34.92 Encounter for supervision of normal pregnancy, unspecified, second trimester (principal)

== ENCOUNTER 2023-10-12 12:43 | Outpatient (CLI) | payer OTHER ==
[~2023-10-12] VITALS: Ht 160 cm; Wt 109.0 kg
[2023-10-12 15:43] LABS: TOTAL PROTEIN,RANDOM URINE 17.8 MG/DL (0.0-14.0)
[2023-10-12 15:48] LABS: CREATININE,RANDOM URINE 83.7 MG/DL
[2023-10-12 16:32] LABS: HEMATOCRIT 38.3 % (36.0-47.0); HEMOGLOBIN 12.7 g/dl (12.0-15.5); MEAN CORPUSCULAR HEMOGLOBIN 28.9 pg (27.0-33.0); MEAN CORPUSCULAR HGB CONC 33.2 g/dl (32.0-36.5); PLATELET COUNT, AUTOMATED 287 10^3/uL (150-450); WHITE BLOOD COUNT 18.7 10^3/uL (4.0-10.0)
[2023-10-12 17:01] LABS: ALBUMIN 2.9 G/DL (3.2-5.2); ALKALINE PHOSPHATASE 68 U/L (46-116); ALT/SGPT 14 U/L (7.0-40); AST/SGOT < 8 U/L (<34); BILIRUBIN,TOTAL 0.5 MG/DL (0.3-1.2); BLOOD UREA NITROGEN 10 MG/DL (9-23); CALCIUM LEVEL 9.2 MG/DL (8.5-10.1); CARBON DIOXIDE LEVEL 22 MMOL/L (20-31); CHLORIDE LEVEL 104 MMOL/L (98-107); CREATININE FOR GFR 0.45 MG/DL (0.55-1.30); GLOMERULAR FILTRATION RATE > 60.0 (>60); GLUCOSE, FASTING 110 MG/DL (60-100); POTASSIUM SERUM 3.3 MMOL/L (3.5-5.1); SODIUM LEVEL 138 MMOL/L (136-145); TOTAL PROTEIN 7.1 G/DL (5.7-8.2)
[2023-10-12] MEDS ORDERED: POTASSIUM CHLORIDE 10MEQ SR TABLET PO ONE (17:35)
== END 2023-10-12 18:00 | disposition home or self-care (01) ==
LOC: M LDO 12:43
PROVIDERS: ATTEND Advanced Practice Midwife
DX: O26.892 Other specified pregnancy related conditions, second trimester (principal); R10.2 Pelvic and perineal pain; O24.312 Unspecified pre-existing diabetes mellitus in pregnancy, second trimester; O99.342 Other mental disorders complicating pregnancy, second trimester; F31.9 Bipolar disorder, unspecified; M54.6 Pain in thoracic spine; Z3A.27 27 weeks gestation of pregnancy
CPT/HCPCS: 59025; 80053; 81001; 82570; 84156; 85027; 87086; G0463

== ENCOUNTER 2023-10-20 09:41 | Inpatient (IN) | payer OTHER ==
[2023-10-20] VITALS (8 sets, daily range): BP systolic 99–138; BP diastolic 56–80
[~2023-10-20] VITALS: Ht 160 cm; Wt 110.0 kg
[~2023-10-20 09:41] MED LIST changes: -METF-838; +METF-838 PO
[2023-10-20] MEDS ORDERED: LR 1,000 ML IV ONE ×2 (10:15→10:40)
[2023-10-20] MEDS ORDERED: HOME MED LIST COMPLETE! XX SCH (10:30)
[2023-10-20 10:49] LABS: BASO % 0.3 % (0.0-1.0); EOS % 0.2 % (0.0-3.0); HEMATOCRIT 32.8 % (36.0-47.0); HEMOGLOBIN 11.1 g/dl (12.0-15.5); LYMPH # 0.3 10^3/uL (1.5-5.0); LYMPH % 3.5 % (24.0-44.0); MEAN CORPUSCULAR HEMOGLOBIN 28.2 pg (27.0-33.0); MEAN CORPUSCULAR HGB CONC 33.8 g/dl (32.0-36.5); MEAN CORPUSCULAR VOLUME 83.5 fl (80.0-96.0); MONO % 0.3 % (2.0-8.0); NEUTROPHILS # 9.3 10^3/uL (1.5-8.5); NEUTROPHILS % 94.7 % (36.0-66.0); PLATELET COUNT, AUTOMATED 304 10^3/uL (150-450); RED BLOOD COUNT 3.93 10^6/uL (4.00-5.40); WHITE BLOOD COUNT 9.8 10^3/uL (4.0-10.0)
[2023-10-20 11:13] LABS: ALKALINE PHOSPHATASE 100 U/L (46-116); ALT/SGPT 30 U/L (7.0-40); AST/SGOT 19 U/L (<34); BILIRUBIN,TOTAL 0.9 MG/DL (0.3-1.2); BLOOD UREA NITROGEN 6 MG/DL (9-23); CALCIUM LEVEL 8.7 MG/DL (8.5-10.1); CARBON DIOXIDE LEVEL 18 MMOL/L (20-31); CHLORIDE LEVEL 109 MMOL/L (98-107); CREATININE FOR GFR 0.45 MG/DL (0.55-1.30); GLOMERULAR FILTRATION RATE > 60.0 (>60); GLUCOSE, FASTING 109 MG/DL (60-100); POTASSIUM SERUM 3.3 MMOL/L (3.5-5.1); SODIUM LEVEL 141 MMOL/L (136-145)
[2023-10-20 11:14] LABS: ACETONE/KETONE 0.34 MMOL/L (0.02-0.27)
[2023-10-20 11:15] LABS: THYROID STIMULATING HORMONE 1.658 uIU/ML (0.55-4.78)
[2023-10-20 11:45] LABS: OSMOLALITY SERUM 280 MOSM/KG (275-295)
[2023-10-20 12:54] LABS: AMPHETAMINES URINE REFLEX NEGATIVE (NEGATIVE); BARBITURATES URINE REFLEX NEGATIVE (NEGATIVE); BENZODIAZEPINES URINE REFLEX NEGATIVE (NEGATIVE); CANNABINOIDS URINE REFLEX NEGATIVE (NEGATIVE); COCAINE METABOLITE URINE REFLE NEGATIVE (NEGATIVE); METHADONE URINE REFLEX NEGATIVE (NEGATIVE); OPIATES URINE REFLEX NEGATIVE (NEGATIVE); PHENCYCLIDINE URINE REFLEX NEGATIVE (NEGATIVE)
[2023-10-20] MEDS ORDERED: cefTRIAXone SOD 1 GM in D5W MINI-BAG PLUS 50 ML IV SCH (13:00)
[2023-10-20 13:05] LABS: MAGNESIUM LEVEL 1.3 MG/DL (1.8-2.4)
[2023-10-20] MEDS ORDERED: GLUCOSE 4GM CHEW TABLET PO PRN (13:15)
[2023-10-20] MEDS ORDERED: DEXTROSE 50% 50ML SYRINGE IV PRN (13:15)
[2023-10-20] MEDS ORDERED: GLUCAGON INJ 1MG VIAL SC PRN (13:15)
[2023-10-20] MEDS ORDERED: POTASSIUM CHLORIDE 10MEQ SR TABLET PO ONE ×2 (13:45→18:00)
[2023-10-20] MEDS ORDERED: NS 1,000 ML IV SCH (14:15)
[2023-10-20] MEDS: MAG SULF 1GM/100ML (MAG RUN) 1 GM in IV 1 EA IV SCH ×3 (14:56→17:24)
[2023-10-20 16:46] LABS: BLOOD UREA NITROGEN 6 MG/DL (9-23); CALCIUM LEVEL 7.9 MG/DL (8.5-10.1); CARBON DIOXIDE LEVEL 22 MMOL/L (20-31); CHLORIDE LEVEL 106 MMOL/L (98-107); CREATININE FOR GFR 0.57 MG/DL (0.55-1.30); GLOMERULAR FILTRATION RATE > 60.0 (>60); GLUCOSE, FASTING 167 MG/DL (60-100); POTASSIUM SERUM 3.2 MMOL/L (3.5-5.1); SODIUM LEVEL 137 MMOL/L (136-145)
[2023-10-20 16:58] LABS: PROCALCITONIN 39.74 ng/ml
[2023-10-20] MEDS: LR 1,000 ML IV SCH (17:24)
[2023-10-20] MEDS: INSULIN LISPRO (NovoLOG) PER UNIT SC SCH (18:18)
[2023-10-20 18:25] LABS: CK-MB VALUE MASS < 1.0 NG/ML (<3.6)
[2023-10-20 18:27] LABS: CPK CREATINE PHOSPHOKINASE < 15 U/L (34-145)
[2023-10-20] MEDS ORDERED: LEVEMIR (INSULIN DETEMIR) 1 UNITS/0.01ML SC SCH ×2 (21:00)
[2023-10-20] MEDS ORDERED: INSULIN LISPRO (NovoLOG) PER UNIT SC SCH (21:00)
[2023-10-21] MEDS: LR 1,000 ML IV SCH ×2 (01:56→09:11)
[2023-10-21 03:18] VITALS: BP 136/73
[2023-10-21 06:42] VITALS: BP 115/56
[2023-10-21 07:10] LABS: BASO % 0.2 % (0.0-1.0); EOS % 0.1 % (0.0-3.0); HEMOGLOBIN 9.6 g/dl (12.0-15.5); LYMPH # 0.7 10^3/uL (1.5-5.0); LYMPH % 5.5 % (24.0-44.0); MEAN CORPUSCULAR HEMOGLOBIN 28.3 pg (27.0-33.0); MEAN CORPUSCULAR HGB CONC 33.1 g/dl (32.0-36.5); MEAN CORPUSCULAR VOLUME 85.5 fl (80.0-96.0); MONO # 0.3 10^3/uL (0.0-0.8); MONO % 2.5 % (2.0-8.0); NEUTROPHILS # 12.1 10^3/uL (1.5-8.5); NEUTROPHILS % 90.1 % (36.0-66.0); PLATELET COUNT, AUTOMATED 247 10^3/uL (150-450); RED BLOOD COUNT 3.39 10^6/uL (4.00-5.40); WHITE BLOOD COUNT 13.5 10^3/uL (4.0-10.0)
[2023-10-21 07:25] LABS: BLOOD UREA NITROGEN 5 MG/DL (9-23); CALCIUM LEVEL 8.4 MG/DL (8.5-10.1); CARBON DIOXIDE LEVEL 21 MMOL/L (20-31); CHLORIDE LEVEL 110 MMOL/L (98-107); CREATININE FOR GFR 0.44 MG/DL (0.55-1.30); GLOMERULAR FILTRATION RATE > 60.0 (>60); GLUCOSE, FASTING 123 MG/DL (60-100); MAGNESIUM LEVEL 1.7 MG/DL (1.8-2.4); POTASSIUM SERUM 3.4 MMOL/L (3.5-5.1); SODIUM LEVEL 141 MMOL/L (136-145)
[2023-10-21] MEDS ORDERED: POTASSIUM CHLORIDE 10MEQ SR TABLET PO ONE (08:30)
[2023-10-21] MEDS: INSULIN LISPRO (NovoLOG) PER UNIT SC SCH ×3 (08:47→18:05)
[2023-10-21] MEDS: LEVEMIR (INSULIN DETEMIR) 1 UNITS/0.01ML SC SCH ×2 (09:10→21:17)
[2023-10-21] MEDS: MAG SULF 1GM/100ML (MAG RUN) 1 GM in IV 1 EA IV SCH ×2 (11:20→12:27)
[2023-10-21 11:47] VITALS: BP 116/77
[2023-10-21] MEDS: ACETAMINOPHEN TAB 650MG DOSE (2X325MG) PO PRN (11:58)
[2023-10-21] MEDS: AMPICILLIN SOD/SULBACTAM SOD 3 GM in D5W MINI-BAG PLUS 100 ML IV SCH ×2 (12:17→18:05)
[2023-10-21 16:24] VITALS: BP 120/59; O2SAT 97
[2023-10-21] MEDS ORDERED: INSULIN LISPRO (NovoLOG) PER UNIT SC SCH ×2 (17:45→21:00)
[2023-10-21] MEDS ORDERED: DOCUSATE SODIUM 100MG CAPSULE PO PRN (19:05)
[2023-10-21] MEDS: FERROUS SULFATE 325MG TAB PO SCH (21:16)
[2023-10-21] MEDS: HEPARIN SOD (PORCINE) 5000UNITS/ML 1ML VIAL/SYRINGE SQ SCH (21:17)
[2023-10-21 21:23] VITALS: BP 134/78
[2023-10-22] VITALS (8 sets, daily range): BP systolic 112–145; BP diastolic 61–92
[2023-10-22] MEDS: AMPICILLIN SOD/SULBACTAM SOD 3 GM in D5W MINI-BAG PLUS 100 ML IV SCH ×3 (00:01→14:11)
[2023-10-22] MEDS: LR 1,000 ML IV SCH (00:14)
[2023-10-22] MEDS: ACETAMINOPHEN TAB 650MG DOSE (2X325MG) PO PRN ×2 (04:21→14:13)
[2023-10-22 07:12] LABS: BASO # 0.1 10^3/uL (0.0-0.2); BASO % 0.4 % (0.0-1.0); EOS # 0.1 10^3/uL (0.0-0.5); EOS % 0.5 % (0.0-3.0); HEMATOCRIT 27.1 % (36.0-47.0); LYMPH # 1.6 10^3/uL (1.5-5.0); LYMPH % 13.8 % (24.0-44.0); MEAN CORPUSCULAR HEMOGLOBIN 28.1 pg (27.0-33.0); MEAN CORPUSCULAR HGB CONC 33.2 g/dl (32.0-36.5); MEAN CORPUSCULAR VOLUME 84.7 fl (80.0-96.0); MONO # 0.7 10^3/uL (0.0-0.8); MONO % 6.3 % (2.0-8.0); NEUTROPHILS # 8.8 10^3/uL (1.5-8.5); NEUTROPHILS % 76.9 % (36.0-66.0); PLATELET COUNT, AUTOMATED 224 10^3/uL (150-450); WHITE BLOOD COUNT 11.4 10^3/uL (4.0-10.0)
[2023-10-22] MEDS ORDERED: POTASSIUM CHLORIDE 10MEQ SR TABLET PO ONE (07:15)
[2023-10-22 07:41] LABS: BLOOD UREA NITROGEN 6 MG/DL (9-23); CALCIUM LEVEL 8.2 MG/DL (8.5-10.1); CARBON DIOXIDE LEVEL 23 MMOL/L (20-31); CHLORIDE LEVEL 108 MMOL/L (98-107); CREATININE FOR GFR 0.43 MG/DL (0.55-1.30); GLOMERULAR FILTRATION RATE > 60.0 (>60); GLUCOSE, FASTING 80 MG/DL (60-100); POTASSIUM SERUM 3.5 MMOL/L (3.5-5.1); SODIUM LEVEL 139 MMOL/L (136-145)
[2023-10-22 08:07] LABS: MAGNESIUM LEVEL 1.7 MG/DL (1.8-2.4)
[2023-10-22] MEDS: INSULIN LISPRO (NovoLOG) PER UNIT SC SCH ×2 (08:35→14:11)
[2023-10-22] MEDS: LEVEMIR (INSULIN DETEMIR) 1 UNITS/0.01ML SC SCH (08:44)
[2023-10-22] MEDS ORDERED: PRENATAL VITAMINS CHEWABLE TABLET PO SCH (09:00)
[2023-10-22] MEDS: FERROUS SULFATE 325MG TAB PO SCH (09:47)
[2023-10-22] MEDS: HEPARIN SOD (PORCINE) 5000UNITS/ML 1ML VIAL/SYRINGE SQ SCH (09:47)
[2023-10-22] MEDS ORDERED: HYDR-643 PO (10:28)
[2023-10-22] MEDS ORDERED: MAG SULF 1GM/100ML (MAG RUN) 1 GM in IV 1 EA IV ONE (11:00)
[2023-10-22] MEDS ORDERED: LR 1,000 ML IV SCH (12:30)
[2023-10-22] MEDS ORDERED: MAG Sulf (OBGYN) 20GM/500ML 20,000 MG in IV 1 EA IV SCH (15:30)
[2023-10-22] MEDS ORDERED: BETAMETHASONE SOLUSPAN 6MG/ML 5ML VIAL IM ONE (15:45)
[2023-10-22] MEDS ORDERED: LEVEMIR (INSULIN DETEMIR) 1 UNITS/0.01ML SC SCH (21:00)
== END 2023-10-22 16:40 | disposition short-term general hospital (02) | DRG 566 ==
LOC: M LDO 09:41 → M LDI 11:30 → OBSVTOIN 10-22 11:30
PROVIDERS: ADMIT Obstetrics & Gynecology; ATTEND Obstetrics & Gynecology
PROC: B246ZZZ Ultrasonography of Right and Left Heart (ICD-10-PCS; principal; 2023-10-21)
DX: O98.813 Other maternal infectious and parasitic diseases complicating pregnancy, third trimester (principal); E11.21 Type 2 diabetes mellitus with diabetic nephropathy; E87.20 Acidosis, unspecified; K52.1 Toxic gastroenteritis and colitis; O26.873 Cervical shortening, third trimester; O23.43 Unspecified infection of urinary tract in pregnancy, third trimester; O24.113 Pre-existing type 2 diabetes mellitus, in pregnancy, third trimester; E11.42 Type 2 diabetes mellitus with diabetic polyneuropathy; E83.42 Hypomagnesemia; Z3A.28 28 weeks gestation of pregnancy; F31.9 Bipolar disorder, unspecified; F43.10 Post-traumatic stress disorder, unspecified; O99.344 Other mental disorders complicating childbirth; Z79.84 Long term (current) use of oral hypoglycemic drugs; Z90.49 Acquired absence of other specified parts of digestive tract; E87.6 Hypokalemia; O99.283 Endocrine, nutritional and metabolic diseases complicating pregnancy, third trimester; O99.613 Diseases of the digestive system complicating pregnancy, third trimester; N39.0 Urinary tract infection, site not specified

== ENCOUNTER → 2024-02-18 | Outpatient (CLI) | payer OTHER ==
[~2024-02-18] MED LIST changes: +HYDR-643 PO
[2024-02-18 16:26] LABS: HEMOGLOBIN A1c 7.3 % (4.0-6.0)
== END ==
LOC: M PLALAB 14:02
PROVIDERS: ATTEND Family Medicine
DX: E11.65 Type 2 diabetes mellitus with hyperglycemia (principal)

== ENCOUNTER → 2024-07-17 | Outpatient (REF) | payer OTHER ==
[2024-07-17 18:54] LABS: HEMOGLOBIN A1c 6.9 % (4.0-6.0)
== END ==
LOC: M PLALAB 17:09
PROVIDERS: ATTEND Family Medicine
DX: E11.65 Type 2 diabetes mellitus with hyperglycemia (principal)

== ENCOUNTER → 2024-07-18 | Outpatient (REF) | payer OTHER | LOC: M SFHCPLAZ 14:39 | PROVIDERS: ATTEND Family Medicine | DX: R05.1 Acute cough (principal) ==

== ENCOUNTER → 2024-07-29 | Outpatient (CLI) | payer OTHER | LOC: M WHC 12:28 | PROVIDERS: ATTEND Family Medicine | DX: N83.201 Unspecified ovarian cyst, right side (principal); N88.8 Other specified noninflammatory disorders of cervix uteri ==

== ENCOUNTER → 2024-08-21 | Outpatient (CLI) | payer OTHER | LOC: M PLALAB 13:56 | PROVIDERS: ATTEND Family Medicine | DX: Z32.01 Encounter for pregnancy test, result positive (principal) ==

== ENCOUNTER → 2024-10-08 | Outpatient (REF) | payer OTHER | LOC: M SFHCPLAZ 16:56 | PROVIDERS: ATTEND Physician Assistant Medical | DX: R30.0 Dysuria (principal) ==

== ENCOUNTER → 2024-11-07 | Outpatient (CLI) | payer OTHER ==
[2024-11-07 16:46] LABS: BASO # 0.1 10^3/uL (0.0-0.2); BASO % 0.5 % (0.0-1.0); EOS # 0.2 10^3/uL (0.0-0.5); HEMATOCRIT 39.3 % (36.0-47.0); HEMOGLOBIN 12.2 g/dl (12.0-15.5); LYMPH # 3.3 10^3/uL (1.5-5.0); LYMPH % 32.5 % (24.0-44.0); MEAN CORPUSCULAR HEMOGLOBIN 23.1 pg (27.0-33.0); MEAN CORPUSCULAR VOLUME 74.6 fl (80.0-96.0); MONO # 0.5 10^3/uL (0.0-0.8); MONO % 5.1 % (2.0-8.0); NEUTROPHILS # 6.1 10^3/uL (1.5-8.5); NEUTROPHILS % 59.5 % (36.0-66.0); PLATELET COUNT, AUTOMATED 403 10^3/uL (150-450); RED BLOOD COUNT 5.27 10^6/uL (4.00-5.40); WHITE BLOOD COUNT 10.3 10^3/uL (4.0-10.0)
[2024-11-07 17:11] LABS: CREATININE, URINE 141.5 MG/DL; MAU/CREAT RATIO 7.7 MCG/MG (0.0-30.0)
[2024-11-07 17:13] LABS: HEMOGLOBIN A1c 5.5 % (4.0-6.0)
[2024-11-07 17:14] LABS: ALBUMIN 3.6 G/DL (3.2-5.2); ALKALINE PHOSPHATASE 82 U/L (35-104); ALT/SGPT 15 U/L (7.0-40); AST/SGOT 9 U/L (<34); BILIRUBIN,TOTAL 0.3 MG/DL (0.3-1.2); BLOOD UREA NITROGEN 15 MG/DL (9-23); CALCIUM LEVEL 9.1 MG/DL (8.5-10.1); CARBON DIOXIDE LEVEL 26 MMOL/L (20-31); CHLORIDE LEVEL 105 MMOL/L (98-107); CHOLESTEROL LEVEL 118 MG/DL (<200); CHOLESTEROL RISK RATIO 3.94 (<5); CREATININE FOR GFR 0.65 MG/DL (0.55-1.30); GLOMERULAR FILTRATION RATE > 60.0 (>60); GLUCOSE, FASTING 67 MG/DL (60-100); HDL CHOLESTEROL 29.9 MG/DL (>40); LDL CHOLESTEROL 58.5 MG/DL (<100); NON-HDL-C 88.1 MG/DL; POTASSIUM SERUM 4.3 MMOL/L (3.5-5.1); SODIUM LEVEL 142 MMOL/L (136-145); TOTAL PROTEIN 8.3 G/DL (5.7-8.2); TRIGLYCERIDES LEVEL 148 MG/DL (<150)
== END ==
LOC: M PLALAB 14:22
PROVIDERS: ATTEND Family Medicine
DX: E11.65 Type 2 diabetes mellitus with hyperglycemia (principal); E78.1 Pure hyperglyceridemia

== ENCOUNTER → 2024-12-10 | Outpatient (REF) | payer OTHER | LOC: M SFHCPLAZ 12:47 | PROVIDERS: ATTEND Student in an Organized Health Care Education/Training Program | DX: J06.9 Acute upper respiratory infection, unspecified (principal) ==

== ENCOUNTER → 2025-01-28 | Outpatient (REF) | payer OTHER ==
[2025-01-28 17:54] LABS: HEMOGLOBIN A1c 5.2 % (4.0-6.0)
== END ==
LOC: M PLALAB 16:44
PROVIDERS: ATTEND Family Medicine
DX: E11.65 Type 2 diabetes mellitus with hyperglycemia (principal)

== ENCOUNTER → 2025-01-29 | Outpatient (REF) | payer OTHER ==
[2025-02-03 13:26] LABS: HPV APTIMA Not Detected (Not Detected)
== END ==
LOC: M SFHCPLAZ 09:49
PROVIDERS: ATTEND Family Medicine
DX: Z12.4 Encounter for screening for malignant neoplasm of cervix (principal)

== ENCOUNTER → 2025-02-02 | Outpatient (CLI) | payer OTHER ==
[2025-02-02 16:24] LABS: PERCENT SATURATION 6.3 % (13.2-45.0)
[2025-02-02 16:25] LABS: FERRITIN 5.5 NG/ML (7.3-270.7); THYROID STIMULATING HORMONE 1.675 uIU/ML (0.55-4.78)
== END ==
LOC: M PLALAB 13:23
PROVIDERS: ATTEND Family Medicine
DX: R00.0 Tachycardia, unspecified (principal); R71.8 Other abnormality of red blood cells

== ENCOUNTER → 2025-03-10 | Outpatient (CLI) | payer OTHER ==
[2025-03-10 17:58] LABS: BASO # 0.1 10^3/uL (0.0-0.2); BASO % 0.7 % (0.0-1.0); EOS # 0.2 10^3/uL (0.0-0.5); EOS % 1.3 % (0.0-3.0); HEMATOCRIT 39.3 % (36.0-47.0); HEMOGLOBIN 12.1 g/dl (12.0-15.5); LYMPH % 25.9 % (24.0-44.0); MEAN CORPUSCULAR HEMOGLOBIN 23.9 pg (27.0-33.0); MEAN CORPUSCULAR HGB CONC 30.8 g/dl (32.0-36.5); MEAN CORPUSCULAR VOLUME 77.7 fl (80.0-96.0); MONO # 0.7 10^3/uL (0.0-0.8); MONO % 6.2 % (2.0-8.0); NEUTROPHILS # 7.5 10^3/uL (1.5-8.5); NEUTROPHILS % 65.5 % (36.0-66.0); PLATELET COUNT, AUTOMATED 377 10^3/uL (150-450); RED BLOOD COUNT 5.06 10^6/uL (4.00-5.40); WHITE BLOOD COUNT 11.4 10^3/uL (4.0-10.0)
[2025-03-10 18:12] LABS: THYROID STIMULATING HORMONE 1.697 uIU/ML (0.55-4.78); THYROXINE (T4) 6.7 UG/DL (4.5-10.9)
[2025-03-10 18:13] LABS: FOLATE 10.2 NG/ML (>5.4)
[2025-03-10 18:14] LABS: ALBUMIN 3.9 G/DL (3.2-5.2); ALKALINE PHOSPHATASE 83 U/L (35-104); ALT/SGPT 22 U/L (7.0-40); AST/SGOT 9 U/L (<34); BILIRUBIN,TOTAL 0.3 MG/DL (0.3-1.2); BLOOD UREA NITROGEN 20 MG/DL (9-23); CALCIUM LEVEL 9.1 MG/DL (8.5-10.1); CARBON DIOXIDE LEVEL 24 MMOL/L (20-31); CHLORIDE LEVEL 106 MMOL/L (98-107); CPK CREATINE PHOSPHOKINASE 66 U/L (34-145); CREATININE FOR GFR 0.66 MG/DL (0.55-1.30); GLOMERULAR FILTRATION RATE > 90.0 (>60); GLUCOSE, FASTING 114 MG/DL (60-100); POTASSIUM SERUM 4.2 MMOL/L (3.5-5.1); SODIUM LEVEL 141 MMOL/L (136-145); TOTAL PROTEIN 7.9 G/DL (5.7-8.2); VITAMIN B12 LEVEL 315 PG/ML (211-911)
[2025-03-10 18:16] LABS: FREE THYROXINE INDEX 2.2 % (1.3-4.8); T UPTAKE 32.4 % (22.5-37.0)
[2025-03-10 18:25] LABS: HEMOGLOBIN A1c 5.5 % (4.0-6.0)
[2025-03-13 19:13] LABS: ALDOLASE 4.9 U/L (< OR = 8.1)
[2025-03-14 18:43] LABS: VITAMIN E(ALPHA TOCOPHEROL) 12.7 mg/L (5.7-19.9); VITAMIN E(GAMMA TOCOPHEROL) 1.7 mg/L (<=4.3)
[2025-03-15 16:38] LABS: VITAMIN B6,PYRIDOXAL PHOSPHATE 9.8 ng/mL (2.1-21.7)
== END ==
LOC: M PLALAB 16:04
PROVIDERS: ATTEND Psychiatry & Neurology Neurology
DX: E07.9 Disorder of thyroid, unspecified (principal); M79.10 Myalgia, unspecified site; E11.9 Type 2 diabetes mellitus without complications; E53.8 Deficiency of other specified B group vitamins